=== PATIENT | male | born 1965 | race Caucasian/White ===

== ENCOUNTER 2024-10-25 09:28 | Emergency (ER) | payer BC, SELFPAY ==
[2024-10-25 09:33] VITALS: BP 141/95; PULSE 85; RESP 18; TEMP 35.5; O2SAT 96; BMI 45.6
--- NOTE | 2024-10-25 09:58 | ED_ITS ---
HPI - General Adult General Date Seen: 10/25/24 Chief complaint: Skin/Abscess/Foreign Body Stated complaint: Rash all over body Time Seen by Provider: 10/25/24 09:57 History of Present Illness HPI narrative: 59 yo M with history of GERD, hypertension, elevated BMI (on metformin and step- down) but otherwise generally healthy. No history of autoimmune disease or other chronic illness. He does have a history of chicken pox as a teenager with a fairly severe illness at that time but no chronic symptoms and no history of shingles outbreaks. He presents to the ER today with concern for mouth sores, and an itchy slightly raised pruritic pustular rash on his body. He 1st noted some symptoms about 4 or 5 days ago on or Friday way at a little bit of ache in the back of his neck and then developed some sores on the roof of his mouth in the soft palate. The following day he felt a little bit better but then in the afternoon at the ache in the back of his neck came back and he definitely had sores on the roof of his mouth. The following day on Friday he still had the mouth sores. He was able to mow his yd on Friday afternoon and after that started develop a rash initially on his left upper arm in the axilla and medial arm but since then has spread to the right upper arm, chest, abdomen, thighs, and calves. The rash has been red, slightly raised, itchy. He has noted a few blisters that have drained clear fluid. No purulent drainage. Also yesterday evening he had a little bit of some systemic fever and chills and checked a tympanic temperature that was elevated at 99.7 and 100? in his left and right ears. He does not have a headache. No eye symptoms or itchy eyes. No sore throat. No cough. No nausea or vomiting. No abdominal pain. Urination has been normal. Stooling has been normal and no pain with defecation but he does note that in general his stool volume is lower over the past 2-3 months, since he started on step-down, than it used to be prior to initiation of that medication. He attributes it to eating less. No change in his stools over the past few days. He does have poison oak and poison sumac in his yd. He has reacted them in the past but does not know of any specific exposure. He certainly did not burn them lately or put any of the plants from his yd in his mouth. He has no known sick exposures to other people with viruses or [id number]. No other new medications. No new foods. Related Data Home Medications ?Medication ?Instructions ?Recorded ?Confirmed Zepbound 10/25/24 lisinopril 10/25/24 metformin 10/25/24 pantoprazole 10/25/24 Previous Rx's ?Medication ?Instructions ?Recorded prednisone 20 mg tablet 60 mg (3 x 20 mg) PO DAILY 5 days 10/25/24 #15 tabs Allergies Allergy/AdvReac Type Severity Reaction Status Date / Time bee pollen Allergy Intermediate Verified 10/25/24 09:40 Exam Narrative: Exam Narrative: Constitutional: Appears well-developed and well-nourished. Alert. Conversant. Non toxic. HENT: Head: Atraumatic. Nose: Nose normal. Mouth/Throat: Oral mucosa moist. He does have a had a regular figure-eight shape of erythema on the soft palate that I think is probably inflamed tissue and probably some de roofed vesicles. He has 3 distinct open vesicles on the mucosal surface on the lower lip. He has 1 vesicle on the tip of his tongue. No other intraoral lesions. Our lips are normal. There is no peeling or desquamation of mucosa. no trismus. Pharynx normal. Tonsils symmetric. No tonsillar enlargement, erythema, or exudate. Eyes: Conjunctivae normal. No conjunctivitis. No drainage. EOM normal. Pupils equal, round, and reactive to light. No scleral icterus. Neck: Normal range of motion. Neck supple. No tracheal deviation present. Cardiovascular: Normal rate, regular rhythm. No gallop. No friction rub. No murmur heard. Symmetric radial artery pulses Pulmonary/Chest: Effort normal. No stridor. No respiratory distress. No wheezes. No rales. No rhonchi . No tenderness. Abdominal: Soft. Bowel sounds normal. No distension. No mass. No tenderness. No rebound. No guarding. Musculoskeletal: RUE: Normal range of motion. No tenderness. No deformity LUE: Normal range of motion. No tenderness. No deformity RLE: Normal range of motion. No edema. No tenderness. No deformity LLE: Normal range of motion. No edema. No tenderness. No deformity Lymph: No cervical adenopathy. Neurological: Alert and oriented to person, place, and time. Normal strength. CN II-VII intact. No sensory deficit. GCS eye subscore is 4. GCS verbal subscore is 5. GCS motor subscore is 6. Normal coordination Skin: He has an erythematous rash affecting the skin of his upper arms,. In many parts of the rash it consist of discrete 5-10 mm erythematous macules, some of these have small vesicles at the center and others a have appear to have D Rue fascicles. On the medial surface of his upper arms in the axilla the rash does appear to be more confluent vesicles and creates a slightly raised, pruritic, plaque of rash. There is no desquamation. No purulent drainage. It is not really warm to the touch. He also has slightly raised rash on the right anterior> left anterior thigh. He also has many small it discrete erythematous lesions affecting the skin of his calves. Trunk is relatively spared but there are few small lesions on his back and on his chest and abdomen. Couple of small lesions on the back of his neck. I do not see any lesions on the skin of his face. No pallor. Normal capillary refill. Psychiatric: Normal mood. Normal affect. Polite. Detailed historian. Const: Vital Signs, click to edit/add: Vital Signs - 24 hr 10/25/24 09:33 Temperature 96 F L Pulse Rate [Pulse Oximeter] 85 Respiratory Rate 18 Blood Pressure [Ri ght Upper Arm] 141/95 H Pulse Oximetry 96 Oxygen Delivery Me thod Room Air Course Vital Signs Vital signs: Initial Vital Signs Temperature 96 F L 10/25/24 09:33 Temperature Source Temporal Artery Scan 10/25/24 09:33 Pulse Rate 85 10/25/24 09:33 Respiratory Rate 18 10/25/24 09:33 Blood Pressure 141/95 H 10/25/24 09:33 Blood Pressure Mean 110 H 10/25/24 09:33 Pulse Oximetry 96 10/25/24 09:33 Oxygen Delivery Method Room Air 10/25/24 09:33 Vital Signs Temperature 96 F L 10/25/24 09:33 Pulse Rate 85 10/25/24 09:33 Respiratory Rate 18 10/25/24 09:33 Blood Pressure 141/95 H 10/25/24 09:33 Pulse Oximetry 96 09/15/25 09:33 Oxygen Delivery Method Room Air 10/25/24 09:33 Temperature 96 F L 10/25/24 09:33 Pulse Rate 85 10/25/24 09:33 Respiratory Rate 18 10/25/24 09:33 Blood Pressure 141/95 H 10/25/24 09:33 Pulse Oximetry 96 10/25/24 09:33 Oxygen Delivery Method Room Air 10/25/24 09:[address] [facility] Narrative Medical decision making narrative: 59-year-old gentleman presenting to the ER today for evaluation of rash and mouth sores. Symptoms began about 4 5 days ago initially with sores on the inside of his mouth and a mild ache in the back of his neck. Since then he has also developed more sores and blisters on the tip of his tongue on the mucosal surface of his lower lip. He has also developed low-grade fever and chills an a cutaneous rash most prominent on the medial aspect of his upper arms but also affecting his forearms, torso, lower extremities. Differential here is broad. He does have [place] [facility] that could cause a cutaneous reaction, but based on the distribution and the fact that this also involves or lesions I doubt that this is a exposure to poison gilbert or poison oak. No definite new exposure to allergens and given the fact that there are vesicles in the mouth, I think systemic allergic reaction/anaphylaxis is much less likely. I would certainly consider possible viral exanthem. This certainly could be [id number] disease although age is little bit unusual and he has no known exposure. He has no recent cough or respiratory symptoms to raise concern for mycoplasma. Also consider Hare Jordan's with the oral and cutaneous lesions. However there is no desquamation. No signs of any severe cutaneous reaction, desquamation, airway compromise did indicate that requires hospitalization today. In my review, there is no report of [place] lb causing Hare-Jordan but there are rare case reports of lisinopril, metformin, pantoprazole being leg to it. No to these medications are new. At this point, would favor this is probably a viral disease. Therefore, it is okay for him to continue the medications for now. At this point I do not think laboratory testing would be necessary. However if his symptoms get worse, he may need labs. Will try him on a short course of prednisone to see if it helps this rash get better. Consult with the patient in detail that at this point we do not have a definitive diagnosis, although I favor probable viral such as [id number], or other virus. He will monitor carefully for any worsening rash, changing symptoms, higher fever, desquamation, worsening oral lesions. Precautions for return to recheck with changing symptoms were carefully reviewed. He is agreeable. Discharge Plan Discharge Clinical Impression: Rash and nonspecific skin eruption, Acute mucositis Patient Disposition: Home, Self-Care Condition: Stable Instructions: Acute Rash (ED), Oral Mucositis (ED) Additional Instructions: As we discussed, based on the appearance of your rash today, we do not have a clear diagnosis. I suspect that this rash is probably due to a viral infection (such as [id number] disease). If this is due to a virus it should get better on its own over next few days. However, I want her to monitor your symptoms carefully. If you are having worsening rash, worsening swelling or blisters in your mouth, peeling of your skin, high fever, trouble breathing or pain in your throat, or other new symptoms, please come back to the doctor right away. Please take the prescribed steroid for 5 days to try to help the rash get better. You can use antihistamines such as Zyrtec, Claritin, or Benadryl if needed for itching. Prescriptions: New prednisone 20 mg tablet 60 mg PO DAILY 5 Days Qty: 15 0RF No Action metformin lisinopril pantoprazole Zepbound Stand Alone Forms: [employer] Info Instructions
== END 2024-10-25 10:54 | disposition home or self-care (01) ==
PROVIDERS: Emergency Provider Emergency Medicine
DX: R21 Rash and other nonspecific skin eruption (principal)
CPT/HCPCS: 99282